=== PATIENT | male | born 1975 | race African-American/Black ===

== ENCOUNTER 2024-02-15 01:23 | Emergency (ER) | payer MEDICAID ==
[~2024-02-15] VITALS: Ht 172.7 cm; Wt 82.0 kg
[2024-02-15 01:38] VITALS: TEMP 98.2; O2SAT 98
[2024-02-15] MEDS: TETANUS, DIPHTHERIA, PERTUSSIS VAC/PF 0.5ML (>10YR OLD) IM ONE (02:33)
[2024-02-15 02:35] VITALS: BP 140/100; PULSE 90; RESP 18
[2024-02-15] MEDS: HYDROCODONE/ACETAMINOPHEN 5/325MG TABLET PO ONE (02:35)
[2024-02-15] MEDS: BACITRACIN ZINC OINT UDPKT TOP ONE (02:35)
[2024-02-15] MEDS: LIDOCAINE HCL/PF 1% 10 MG/ML 5ML VIAL INFIL ONE (02:35)
[2024-02-15] MEDS ORDERED: ACET-2708 MT (05:04)
== END 2024-02-15 05:10 | disposition home or self-care (01) ==
LOC: ER 01:40
DX: S01.01XA Laceration without foreign body of scalp, initial encounter (principal); F32.A Depression, unspecified; X58.XXXA Exposure to other specified factors, initial encounter; Y93.89 Activity, other specified; Y92.89 Other specified places as the place of occurrence of the external cause; Y99.8 Other external cause status
CPT/HCPCS: 70450; 72125; 90715; 12002; 90471; 99285; J3490; Z7610

== ENCOUNTER 2024-03-01 15:14 | Emergency (ER) | payer MEDICAID ==
[~2024-03-01] VITALS: Ht 172.7 cm; Wt 83.0 kg
[~2024-03-01 15:14] MED LIST: ACET-2708 MT
[2024-03-01 15:31] VITALS: BP 103/57; PULSE 96; RESP 18; TEMP 97.8; O2SAT 98
== END 2024-03-01 17:41 | disposition home or self-care (01) ==
LOC: ER 15:14
DX: S01.91XD Laceration without foreign body of unspecified part of head, subsequent encounter (principal); Z48.02 Encounter for removal of sutures; X58.XXXD Exposure to other specified factors, subsequent encounter
CPT/HCPCS: 99281; Z7610